=== PATIENT | female | born 1970 | race Caucasian/White ===

== ENCOUNTER 2016-08-12 15:37 | Inpatient (IN) ==
[2016-08-12 16:25] LABS: URINE MICRO REVIEW NEEDED? NO; URINE SOURCE CLEAN CATCH
[2016-08-12 16:32] LABS: BILIRUBIN URINE NEGATIVE (NEGATIVE); BLOOD URINE NEGATIVE (NEGATIVE); COLOR YELLOW; GLUCOSE URINE NEGATIVE (NEGATIVE); LEUKOCYTES URINE TRACE (NEGATIVE); NITRITE URINE NEGATIVE (NEGATIVE); PH URINE 7.5; PROTEIN URINE TRACE mg/dL (NEGATIVE); SP GRAVITY URINE 1.021; TURBIDITY URINE CLEAR (CLEAR); UR EPITHELIAL CELLS <10 /HPF (<10); URINE BACTERIA 1+ /HPF; URINE CULTURE NEEDED? YES; URINE RBC <10 /HPF (<10); URINE WBC <10 /HPF (<10); UROBILINOGEN URINE 12 mg/dL (NORMAL)
[2016-08-12 16:35] LABS: BASO% 0.1 % (0.0-0.8); EOS# 0.03 X1000 (0.0-0.7); EOS% 0.2 % (0.0-10.0); HEMATOCRIT 42.2 % (37.0-47.0); HEMOGLOBIN 15.3 g/dL (12.0-16.0); IMM GRAN# 0.02 X1000 (0.0-0.04); IMM GRAN% 0.1 % (0.0-0.5); LYMPH# 1.21 X1000 (1.2-3.4); LYMPH% 8.2 % (20.5-51.1); MANUAL DIFF NEEDED? NO; MCHC 36.3 g/dL (33-37); MCV 85.6 FL (81-99); MONO# 0.91 X1000 (0.11-0.59); MONO% 6.2 % (1.7-9.3); MPV 9.8 FL (7.4-10.4); NEUT% 85.2 % (42.2-75.2); PLT 154 X1000 (130-400); RBC 4.93 XMIL (4.2-5.4)
[2016-08-12 16:45] LABS: AGAP 12; ALBUMIN 3.8 g/dL (3.5-5.0); ALKALINE PHOSPHATASE 94 U/L (32-104); AMYLASE 36 U/L (20-200); BUN 7 mg/dL (8-22); CALCIUM 8.4 mg/dL (8.8-10.2); CHLORIDE 98 mmol/L (98-107); COSMO 269; GOT 28 U/L (10-30); GPT 31 U/L (10-36); LIPASE 27 U/L (13-60); POTASSIUM 3.9 mmol/L (3.5-5.1); SODIUM 135 mmol/L (136-145); TCO2 25 mmol/L (25-35); TOTAL BILIRUBIN 1.08 mg/dL (0.20-1.00); TOTAL PROTEIN 7.5 g/dL (6.3-8.3)
[2016-08-12] MEDS ORDERED: ZOFRAN IV ONE (18:59)
[2016-08-12] MEDS ORDERED: DILAUDID IV ONE (18:59)
[2016-08-12] MEDS ORDERED: VANCOMYCIN 1 GM/NS 250 ML IV ONE (19:00)
--- NOTE | 2016-08-12 19:05 | PROVIDER DOCUMENTATION ---
HPI-General Adult - General Chief Complaint: Abdominal Pain Stated Complaint: ABD PAIN Time Seen by Provider: 08/12/16 17:28 Source: patient Allergies/Adverse Reactions: Patient Allergies Allergy/AdvReac Type Severity Reaction Status Date / Time codeine AdvReac NAUSEA Verified 08/12/16 18:28 Home Medications: Home Medication List Medication Instructions Recorded Confirmed Last Taken Type Furosemide 40 mg PO DAILY 08/12/16 08/12/16 08/12/16 08:00 History Levothyroxine [Synthroid] 150 microgm PO DAILY 08/12/16 08/12/16 08/12/16 08:00 History Nebivolol HCl [Bystolic] 0.5 tab PO DAILY 08/12/16 08/12/16 08/12/16 08:00 History Venlafaxine [Effexor] 150 mg PO DAILY 08/12/16 08/12/16 08/12/16 08:00 History - History of Present Illness -Gen Adult Nature of Presenting Problems: Pt. is 46yof that presents with c/o abdominal wall pain. Pt. reports she went to bed fine last night but today after she was at work, she went to the bathroom and noticed a redness to her abdomen. Pt. reports it feels hot and states it is very painful. Pt. denies any injury or other complaints. Location of Pain/Injury: reports: abdomen. denies: head, face, mouth, neck, chest, upper extremity, hand(s), back, pelvis, genitalia, lower extremity, feet , upper body, lower body, generalized Pain Radiation: reports: no radiation Quality of Pain: reports: aching. denies: burning, cramping, dull, fullness, indigestion, pressure, sharp, stabbing, tearing, throbbing, tightness Severity: reports: moderate. denies: mild, severe Onset/Duration: reports: abrupt, this morning Timing: reports: still present. denies: improving, gone now, resolved prior to arrival, intermittent, constant, changing over time, getting worse Context/Activities at Onset: reports: none. denies: recent emotional stress, recent physical stress, recent trauma history, possible bad food, cold exposure , out of country travel Modifying Factors: improves with: nothing Associated Symptoms: reports: other (rash to abdomen). denies: anxiety, arm pain, back/neck pain, chest pain, constipation, cough, diaphoresis, diarrhea, dizziness, EENT symptoms, fatigue, fever/chills, genitourinary problems, headaches, heartburn, joint pain, loss of appetite, malaise, muscle aches, sinus congestion/drainage, nausea, rash, seizure, shortness of breath, sensory/ motor loss, pain with inspiration, swelling/mass in abdomen, syncope, vomiting, weakness, trouble walking Similar Symptoms Previously?: No Recently seen or treated by another doctor?: No Review of Systems - Adult - REVIEW OF SYSTEMS - ADULT Constitutional: reports: see HPI. denies: chills, fever, fatique Eyes: reports: see HPI. denies: discharge, blurred vision, double vision Ears, Nose, Mouth & Throat: reports: see HPI. denies: ear pain, hearing loss, nose pain, loose teeth, mouth/dental pain, throat pain, throat swelling Cardiovascular: reports: see HPI. denies: chest pain, irregular heart rate, orthopnea, palpitations, syncope Respiratory: reports: see HPI. denies: chronic cough, cough, dyspnea on exertion, pleurisy, shortness of breath, wheezing Gastrointestinal: reports: see HPI. denies: abdominal pain, hematemesis, nausea , vomiting Genitourinary: reports: see HPI. denies: dysuria, discharge, hematuria, incontinence, urgency Musculoskeletal: reports: see HPI. denies: bone pain, joint pain, muscle aches , neck pain Integumentary: reports: see HPI, skin sores/ulcer. denies: hives, hair loss, itching, rash Neurological: reports: see HPI. denies: ataxia, numbness, seizure, tremors Psychiatric: reports: see HPI. denies: anxiety, depression, emotional problems , insomnia, panic attacks, suicidal thoughts Past History - Adult - PAST MEDICAL HISTORY-ADULT Review of Records: reports: Old Records Reviewed, Nursing Assessment Review, Medications Reviewed, Social history reviewed & non-contributory. - IMMUNIZATION STATUS Childhood Immunizations: See Nurse Assessment Flu Vaccine: See Nurse Assessment - FAMILY HISTORY Family History: reviewed, not pertinent - SOCIAL HISTORY Smoking: denies Physical Exam-General - PHYSICAL EXAM-ADULT Initial Vital Signs Reviewed: Yes - CONSTITUTIONAL General Appearance: alert, mild distress, obese. negative: thin, anxious, lethargic, slow to respond, obtunded, combative - EYES Eyes: PERRL/EOMI, pink conjunctivae. negative: conjuctival exudate, scleral icterus, subconjunctival hemorrhage - HEAD, EARS, NOSE, MOUTH & THROAT HENMT: normocephalic/atraumatic, moist mucous membranes. negative: angioedema, frontal tenderness, maxillary tenderness - NECK Neck: non-tender, full range of motion, supple, normal inspection. negative: lymphadenopathy, trachial deviation, thyromegaly - RESPIRATORY Respiratory: lungs clear, normal breath sounds. negative: crackles, rales, rhonchi, stridor, wheezing - CARDIOVASCULAR Cardiovascular: regular rate, rhythm, no edema, no JVD, no murmur, tachycardia. negative: extra beats, friction rub, irregularly irregular - CHEST (BREASTS) Chest/Breast: deferred - GASTROINTESTINAL (ABDOMEN) Abdominal Exam: normal bowel sounds, non tender, soft. negative: distended, guarding, rigid, rebound, tenderness, hernia, mass - GENITOURINARY Female Genitalia/Pelvic Exam: deferred Rectal Exam: deferred Hemoccult Exam: deferred - LYMPHATIC Lymphatic: no adenopathy. negative: axilla node tender, cervical node tenderness - MUSCULOSKELETAL Back Exam: normal inspection, no CVA tenderness, no vertebral tenderness. negative: ecchymosis, swelling, vertebral tenderness Extremity: normal range of motion, non-tender, normal gait, normal inspection. negative: deformity, erythema, inflammation, swelling, tenderness Peripheral Pulses: radial (R): 2+, radial (L): 2+ - SKIN Integumentary: erythema (The whole abdomen and around the left flank is eythemic and hot to touch.), tenderness (The whole abdomen and around the left flank is eythemic and hot to touch.), warm (The whole abdomen and around the left flank is eythemic and hot to touch.). negative: ecchymosis, jaundice, mottled, pallor, petechiae, purpura, rash, swelling - NEUROLOGIC Neurologic: grossly normal, no motor/sensory deficits. negative: aphasia, facial droop, focal weakness, motor weakness, sensory deficit - PSYCHIATRIC Psych/Mental Status: normal mood/affect, normal thought content, normal thought process, oriented x 3. negative: anxious, paranoid, tearful Progress - PLAN OF CARE/RESULTS Progress/Plan/Lab Results: Discussed results and plan of care with patient. Patient agrees with plan and verbalizes understanding. Vital Signs Temp Pulse Resp BP Pulse Ox 08/12/16 16:04 98.1 F 121 H 20 156/102 100 codeine Adverse Reaction (Verified 08/12/16 18:28) NAUSEA Furosemide 40 mg PO DAILY 08/12/16 Levothyroxine [Synthroid] 150 microgm PO DAILY 08/12/16 Nebivolol HCl [Bystolic] 0.5 tab PO DAILY 08/12/16 Venlafaxine [Effexor] 150 mg PO DAILY 08/12/16 Dietary Diet NPO Start SatAug 12 1608 Laboratory 08/12/16 08/12/16 08/12/16 16:20 16:12 16:12 WBC 14.79 H RBC 4.93 Hgb 15.3 Hct 42.2 MCV 85.6 MCH 31.0 MCHC 36.3 RDW Std Deviation 14.1 Plt Count 154 MPV 9.8 Immature Gran % (Auto) 0.1 Neut % (Auto) 85.2 H Lymph % (Auto) 8.2 L [place] % (Auto) 6.2 Eos % (Auto) 0.2 Baso % (Auto) 0.1 Immature Gran # (Auto) 0.02 Neut # (Auto) 12.60 H Lymph # (Auto) 1.21 [place] # (Auto) 0.91 H Eos # (Auto) 0.03 Baso # (Auto) 0.02 Sodium 135 L Potassium 3.9 Chloride 98 Carbon Dioxide 25 Anion Gap 12 BUN 7 L Creatinine 0.7 Estimated GFR/1.73 m2 > 60 BUN/Creatinine Ratio 10 Glucose 119 H Calculated Osmolality 269 Calcium 8.4 L Total Bilirubin 1.08 H AST 28 ALT 31 Alkaline Phosphatase 94 Total Protein 7.5 Albumin 3.8 Globulin 3.7 Albumin/Globulin Ratio 1.0 Amylase 36 Lipase 27 Urine Source CLEAN CATCH Urine Color YELLOW Urine Turbidity CLEAR Urine pH 7.5 Ur Specific Rice 1.021 Urine Protein TRACE A Ur Glucose (Stick) NEGATIVE Ur Ketones (Stick) NEGATIVE Urine Blood NEGATIVE Urine Nitrite NEGATIVE Urine Bilirubin NEGATIVE Urobilinogen Dipstick 12 A Urine Leukocytes TRACE A Urine WBC (Auto) <10 Urine RBC (Auto) <10 U Epithel Cells (Auto) <10 Urine Bacteria (Auto) 1+ Orders Category Date Time Status Saline Loc DIRECTED Care 08/12/16 16:08 Active NPO Diet 08/12/16 16:08 Active AMYLASE [CHEM] Stat Lab 08/12/16 16:12 Completed CBC WITH ELECTRONIC DIFF [HEME] Stat Lab 08/12/16 16:12 Completed COMPREHENSIVE METABOLIC PANEL [CHEM] Stat Lab 08/12/16 16:12 Completed LIPASE [CHEM] Stat Lab 08/12/16 16:12 Completed URINALYSIS W/POSS RFLX CULT [URINALYSIS] Stat Lab 08/12/16 16:20 Completed URINE CULTURE [RM] Routine Lab 08/12/16 16:33 Received Hydromorphone [Dilaudid] Med 08/12/16 18:59 Discontinued 1 mg IV NOW ONE Ondansetron [Zofran] Med 08/12/16 18:59 Discontinued 4 mg IV NOW ONE Vancomycin 1 gm/Ns 250 ml Med 08/12/16 19:00 Active IV NOW Laboratory Tests 08/12/16 08/12/16 08/12/16 16:12 16:12 16:20 WBC 14.79 H RBC 4.93 Hgb 15.3 Hct 42.2 MCV 85.6 MCH 31.0 MCHC 36.3 RDW Std Deviation 14.1 Plt Count 154 MPV 9.8 Immature Gran % (Auto) 0.1 Neut % (Auto) 85.2 H Lymph % (Auto) 8.2 L [place] % (Auto) 6.2 Eos % (Auto) 0.2 Baso % (Auto) 0.1 Immature Gran # (Auto) 0.02 Neut # (Auto) 12.60 H Lymph # (Auto) 1.21 [place] # (Auto) 0.91 H Eos # (Auto) 0.03 Baso # (Auto) 0.02 Sodium 135 L Potassium 3.9 Chloride 98 Carbon Dioxide 25 Anion Gap 12 BUN 7 L Creatinine 0.7 Estimated GFR/1.73 m2 > 60 BUN/Creatinine Ratio 10 Glucose 119 H Calculated Osmolality 269 Calcium 8.4 L Total Bilirubin 1.08 H AST 28 ALT 31 Alkaline Phosphatase 94 Total Protein 7.5 Albumin 3.8 Globulin 3.7 Albumin/Globulin Ratio 1.0 Amylase 36 Lipase 27 Urine Source CLEAN CATCH Urine Color YELLOW Urine Turbidity CLEAR Urine pH 7.5 Ur Specific Rice 1.021 Urine Protein TRACE A Ur Glucose (Stick) NEGATIVE Ur Ketones (Stick) NEGATIVE Urine Blood NEGATIVE Urine Nitrite NEGATIVE Urine Bilirubin NEGATIVE Urobilinogen Dipstick 12 A Urine Leukocytes TRACE A Urine WBC (Auto) <10 Urine RBC (Auto) <10 U Epithel Cells (Auto) <10 Urine Bacteria (Auto) 1+ - CONSULTS/PCP/HOSPITALIST Notification #1 *Consult/PCP/Hospitalist*: Dr. Saunders Time Discussed: 19:18 Reason/Comments: Admisssion Consult Disposition: Will see in ED, Admit (Start Rocephin also) Departure - Departure Time of Disposition Order: 19:07 DIAGNOSIS: Cellulitis Qualifiers: Site of cellulitis: trunk Site of cellulitis of trunk: abdominal wall Qualified Code(s): L03.311 - Cellulitis of abdominal wall Disposition: ADMITTED INPATIENT 09 Certified Medical Emergency: Emergent Condition: Stable Referrals: Wade Greene MD [Primary Care Provider] - Attestation - Physician/ CONG Attestation Patient care was provided by Advanced Practice Provider:: Yes Advanced Practice Provider:: Olga Davey Advanced Practice Provider documentation review:: The Mid-level provider documentation, treatment plan and medical decision making was reviewed by the physician who agrees with all treatment and medical decision making by the MLP.
[2016-08-12] MEDS ORDERED: ROCEPHIN 1 GM/NS 50 ML IV ONE (19:18)
[2016-08-12] MEDS ORDERED: TORADOL ONE (22:50)
[2016-08-12] MEDS: TORADOL IV PRN (22:53)
[2016-08-13] MEDS ORDERED: BENADRYL IV ONE (01:07)
[2016-08-13] MEDS ORDERED: ZOFRAN IV PRN (01:07)
[2016-08-13] MEDS ORDERED: VANCOMYCIN IV PER PHARMACY MISC SCH (01:07)
[2016-08-13] MEDS ORDERED: VANCOMYCIN 1 GM/NS 250 ML IV ONE (01:52)
--- NOTE | 2016-08-13 04:34 | HISTORY AND PHYSICAL ---
CHIEF COMPLAINT: Erythema on the abdomen. PRIMARY CARE PHYSICIAN: Dr. Wade Greene. HISTORY OF PRESENTING ILLNESS: A 46-year-old female with a history of hypertension and depression who had presented to the emergency department with a 1-day history of noticing redness and pain distributed throughout her abdomen and back. She states that it started all of a sudden. It was kind of itchy and painful. Due to presenting symptoms, she had come to the emergency department. In the ER, she was evaluated. Her abdomen seemed moderately erythematous and the symptoms were consistent with possible cellulitis. She will need hospitalization for further management. At the time of my examination, she had denied any headache, fever, chills, chest pain, shortness of breath, hemoptysis, or any weight changes. PAST MEDICAL HISTORY: Hypertension, depression, polycystic ovarian disease. PAST SURGICAL HISTORY: Hysterectomy and cholecystectomy. ALLERGIES: Codeine. CURRENT MEDICATIONS: As listed in the MAR. SOCIAL HISTORY: She denies any history of smoking. Admits to social alcohol use. Denies any illicit drug use. FAMILY HISTORY: Positive for coronary artery disease in mother and father. REVIEW OF SYSTEMS: Twelve point review of systems listed as in the HPI. Other systems negative. PHYSICAL EXAMINATION: GENERAL: Cooperative, friendly, obese female. She is resting comfortably now. VITAL SIGNS: Temperature 98.1 degrees, pulse 121, respirations 20, blood pressure 156/102. HEENT: Atraumatic, normocephalic. Extraocular movements intact. PERRLA. NECK: Neck is supple. CHEST: Clear to auscultation. CARDIOVASCULAR: Regular rate and rhythm. ABDOMEN: Soft, nontender. EXTREMITIES: No edema. NEUROLOGIC: She is awake, alert, oriented x3. : No bladder distention. SKIN: There is a moderate amount of erythema on her abdomen going to her back. LABORATORIES AND STUDIES: WBCs 14.79, hemoglobin 15.3, hematocrit 42.2, platelets 154,000. Sodium 135, potassium 3.9, chloride 98, CO2 is 25, BUN is 7, creatinine is 0.7, glucose is 119. ASSESSMENT: A 46-year-old female with a history of hypertension and depression who had presented to the emergency department with a 1-day history of having a moderate amount of erythema on her abdomen. Symptoms possibly are cellulitis and will need hospitalization for further management. 1. Abdominal cellulitis. 2. Suspected allergic reaction. 3. Hypertension. PLAN: 1. We will admit the patient to the medical floor. 2. We will start patient on IV antibiotics. 3. Give patient Benadryl. 4. Give her also adequate pain control. 5. Monitor blood pressure closely. 6. We will put patient on DVT prophylaxis with SCDs. 7. Continue to follow and reassess.
[2016-08-13] MEDS ORDERED: SYNTHROID PO SCH (07:00)
[2016-08-13 07:15] LABS: MANUAL DIFF NEEDED? NO
[2016-08-13 07:24] LABS: BASO% 0.2 % (0.0-0.8); EOS# 0.06 X1000 (0.0-0.7); EOS% 0.6 % (0.0-10.0); HEMATOCRIT 39.7 % (37.0-47.0); HEMOGLOBIN 14.2 g/dL (12.0-16.0); IMM GRAN# 0.03 X1000 (0.0-0.04); IMM GRAN% 0.3 % (0.0-0.5); LYMPH# 1.13 X1000 (1.2-3.4); LYMPH% 11.3 % (20.5-51.1); MCH 30.7 PG (27-31); MCHC 35.8 g/dL (33-37); MCV 85.7 FL (81-99); MONO# 0.88 X1000 (0.11-0.59); MONO% 8.8 % (1.7-9.3); MPV 9.3 FL (7.4-10.4); NEUT% 78.8 % (42.2-75.2); PLT 121 X1000 (130-400); RBC 4.63 XMIL (4.2-5.4)
[2016-08-13 07:36] LABS: AGAP 10; BUN 6 mg/dL (8-22); CALCIUM 8.5 mg/dL (8.8-10.2); CHLORIDE 100 mmol/L (98-107); COSMO 271; POTASSIUM 3.6 mmol/L (3.5-5.1); SODIUM 136 mmol/L (136-145); TCO2 26 mmol/L (25-35)
[2016-08-13] MEDS: LASIX PO SCH (08:04)
[2016-08-13] MEDS: EFFEXOR PO SCH (08:04)
[2016-08-13] MEDS: BYSTOLIC PO SCH (08:05)
[2016-08-13] MEDS: TORADOL IV PRN ×2 (11:01→20:12)
[2016-08-13] MEDS ORDERED: VANCOMYCIN 2,000 MG in NS 500 ML IV SCH (14:00)
[2016-08-13] MEDS: CLINDAMYCIN 600 MG/NS 50 ML IV SCH ×2 (16:54→23:59)
[2016-08-13] MEDS: KEFZOL 2 GM/D5W 50 ML IV SCH (17:35)
--- NOTE | 2016-08-13 18:20 | PROGRESS NOTE ---
DATE: 08/13/2016 SUBJECTIVE: I saw Ms. Buckley early this morning. She referred to be doing fine. She still continued to have this pain to the left arm, posterior lumbar area. According to her, the redness on the abdominal wall is a little bit worse. OBJECTIVE: Vital signs: Blood pressure is 126/59, pulse 80, respirations 18, temperature 98.0. General: Ms. Buckley is a 46-year-old female. She was in bed and does not seem to be in any distress. Mucosa is pink and moist. Anicteric and acyanotic. Neck is supple. Chest was clear. Cardiovascular: Regular rate and rhythm. No murmurs. No rubs. No gallops. Abdomen is soft. There is no hepatosplenomegaly. There is a band of redness that comes from the lumbar area all the way across the abdominal wall to the right side of the abdominal wall going over the umbilicus in that band fashion. It is warm, it is red, it is slightly tender. Extremities: No pedal edema. 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 There is no focal neurological deficit. On inspection of the abdominal wall, I did not see any insect bite. I did not see any laceration or any fluctuation. DIAGNOSTIC DATA: WBC is 10.01, hemoglobin is 14.2, platelet count of 121. Chemistry has been reviewed and completely unremarkable. ASSESSMENT: 1. Cellulitis to the abdominal wall. It looks a little bit weird. The clinical presentation I am not sure, if there is an underlying allergy reaction. The patient is currently on antibiotics. I will call Dr. Tamez of Infectious Disease to review to make sure there is nothing else that we are missing. 2. Hypertension. Stable. 3. Morbid obesity with body mass index of 49.9. The patient has been counseled. 4. Hyponatremia, resolved. 5. Hypothyroidism. The patient is currently on levothyroxine. We will continue with the same. Repeat TSH for tomorrow morning.
[2016-08-13] MEDS ORDERED: ROCEPHIN 1 GM/NS 50 ML IV SCH (20:00)
--- NOTE | 2016-08-13 21:38 | CONSULTATION ---
DATE OF CONSULTATION: 08/13/2016 CONCLUSION: The patient has a cellulitis which extends from her back and goes around her waist and crosses the midline in her abdomen. The cellulitis seems to not cross the midline in back. The rash reminds me in some aspects of being due to erysipelas because it has such defined borders. I think it most likely is due to a group A streptococcal infection and less likely Staph aureus. RECOMMENDATIONS: I have switched the patient to a combination of Ancef and clindamycin. DISCUSSION: The patient yesterday noticed that she had back pain, more in the low back area on the left side. She felt that area and it was very warm, then she looked in the mirror and saw that the area had become red. The erythema spread around the left side and across the midline in her abdomen. The rash did not cause the midline in back. The patient did not remember having any fever, but she did have chills. The rash was very painful, especially in the back. LABORATORY STUDIES: Her CBC yesterday was 14,790, today it is down to 10,010, hemoglobin 14.2, and platelet count a 121,000. Creatinine is 0.7. The GFR is greater than 60. Liver function studies are normal. Urine culture showed a mixed growth. PAST MEDICAL HISTORY/REVIEW OF SYSTEMS: Eyes and ears: She denies difficulty hearing or seeing. Neck: No stiffness. Respiratory: No cough or shortness of breath. Cardiovascular: No chest pain or palpitations. GI: No nausea, vomiting, or diarrhea. : No dysuria. There is some flank pain on the left side where the rash is located. Neurologic: No seizures and no motor or sensory loss. Integument: See present illness about the patient's rash. Endocrine: The patient has hypothyroidism, but does not have diabetes. The remainder of the patient's review of systems was completed and was negative. 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 She delivered 1 of her children by . She has had a hysterectomy. PREVIOUS HOSPITALIZATIONS AND OPERATIONS: She has had labor and delivery, and a hysterectomy. She has also had a cholecystectomy. MEDICAL DISEASES: Positive for obesity, hypertension, hypothyroidism and polycystic ovary disease. INFECTIOUS DISEASE HISTORY: Positive for pneumonia, urinary tract infection and upper respiratory infection. FAMILY HISTORY: Positive for hypertension and myocardial infarction. SOCIAL HISTORY[place] . 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 ALLERGIES: She has got an allergy to codeine. HOME MEDICATIONS: At home she takes Effexor, Bystolic, Lasix, Synthroid and potassium. SOCIAL HISTORY: She then does not smoke cigarettes. She occasionally drinks alcoholic beverage. She does not abuse drugs. PHYSICAL EXAMINATION: Vital Signs: Temperature is 98.2 degrees. Pulse 86, respirations 18, blood pressure 129/60. Patient's weight is 290 pounds. General: This is an obese, middle-aged female who is in no acute distress. Head/eyes/ears/nose/throat: She can hear my spoken words and see near objects. No drainage noted from the nose or ears. Neck: No meningismus. Thorax: No increased AP diameter of the chest. Lungs: Clear to auscultation. Cardiovascular: Regular heart rate. There was leg edema. Peripheral pulses are palpable. Abdomen: Soft and nontender except where she has the rash in the upper part of the abdomen and on the left flank. Neurologic: Patient is alert. She can move her extremities. There is no tremor. Sensation is intact to touch. Her memory, as regarding her medical history is intact. Integument: Patient has an erythematous rash spreading from the left side of the lower back around the left flank and over the abdominal wall and it does cross the midline in front, but not in back. There are no vesicles on the rash. It is warm to the touch. It has sharp margins. Thank you for the consult.
[2016-08-14] MEDS: KEFZOL 2 GM/D5W 50 ML IV SCH ×2 (00:48→09:42)
[2016-08-14] MEDS ORDERED: SYNTHROID PO SCH (08:01)
[2016-08-14] MEDS: CLINDAMYCIN 600 MG/NS 50 ML IV SCH ×2 (08:55→15:31)
[2016-08-14] MEDS: BYSTOLIC PO SCH (08:56)
[2016-08-14] MEDS: LASIX PO SCH (08:58)
[2016-08-14] MEDS: EFFEXOR PO SCH (09:01)
--- NOTE | 2016-08-14 14:32 | PROGRESS NOTE ---
DATE: 08/14/2016 Today Marcio refers to be doing a lot better. Still has the redness around the abdominal wall.Vitals: Blood pressure is 129/69, pulse of 57, respirations 20, temperature 98.7 degrees. General Exam: Ms. Buckley is a 46-year-old female. She is in bed, does not seem to be in any distress. HEENT: Mucosa is pink and moist. Anicteric. Acyanotic. Neck: Supple. Chest: Was clear. Cardiovascular: Regular rate and rhythm. Abdomen: Soft, nontender. There is erythematous band that comes from the back of the left flank all the way to the anterior abdominal wall to the right. MICROBIOLOGY: Urine cultures showed mixed jeana probably contamination. TSH is slightly low at 0.06. ASSESSMENT: 1. Cellulitis to the abdominal wall. Some changes have been done to the patient's current antibiotics by ID. There is also the concern that this could be zoster however I do not see any vesicles or pustules on the site of the lesion so will keep a very close eye on that. 2. Hypertension improved. 3. Morbid obesity. 4. Hyponatremia resolved. 5. Hypothyroidism. 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 We would reduce the dose of the levothyroxine to 100 mcg per day.
[2016-08-14 15:08] VITALS: BP 143/72
--- NOTE | 2016-08-14 15:44 | PROGRESS NOTE ---
DATE: 08/14/2016 PRESENT ILLNESS: The patient has a cellulitis involving the abdomen. It is present in the low back area on the left side. It comes around the abdomen to the abdominal wall. It slightly crosses over the midline area. The rash was very erythematous yesterday. Today most of the rash has been fading. At no time were any vesicles noted on the rash. MEDICATIONS: The patient is on a combination of Ancef and clindamycin. PHYSICAL EXAMINATION: Vital Signs: The patient's temperature is 98.7 degrees. It has been below 99 since yesterday. Pulse 67, respirations 20, blood pressure 129/64. Generally: The patient is obese. She is in no acute distress. Skin: Her rash, as mentioned, above, is fading. There are no vesicles on it. The rash is not nearly as warm as it was yesterday. Lungs: Clear to auscultation. Cardiovascular: Regular heart rate. Abdomen: Soft and nontender. LAB AND X-RAY: There is no CBC or BMP for today. There also is no radiographic study done today. ASSESSMENT AND PLAN: The patient has cellulitis. It is getting better. Dr. Santiago and I have talked with the patient. The plan is to let her go home today on a combination of Keflex 500 mg and clindamycin 300 mg, each given p.o. every 8 hours for 9 days. The patient already has an appointment to see her personal physician tomorrow morning. The patient's comorbidity, I really did not find a comorbidity that would explain why she developed this cellulitis. She is obese but the rash really does not occur in any intertriginous areas. I suspect that the rash is due to a Streptococcus either a group B strep or a group A strep.
== END 2016-08-14 16:33 | disposition home or self-care (01) | DRG 603 ==
LOC: ED 15:37 → 3N 22:29
PROVIDERS: ATTEND Internal Medicine
DX: L03.311 Cellulitis of abdominal wall (principal); E87.1 Hypo-osmolality and hyponatremia; I10 Essential (primary) hypertension; Z68.42 Body mass index [BMI] 45.0-49.9, adult; F32.9 Major depressive disorder, single episode, unspecified; E03.9 Hypothyroidism, unspecified; E66.01 Morbid (severe) obesity due to excess calories; E05.80 Other thyrotoxicosis without thyrotoxic crisis or storm; T38.1X5A Adverse effect of thyroid hormones and substitutes, initial encounter; B95.5 Unspecified streptococcus as the cause of diseases classified elsewhere; Z79.899 Other long term (current) drug therapy; Z82.49 Family history of ischemic heart disease and other diseases of the circulatory system
CPT/HCPCS: 36415; 80048; 80053; 81001; 82150; 83690; 84443; 85025; 87088; 96365; 96367; 96375; J0690; J0696; J1170; J1200; J1885; J2405; J3370; S0077